=== PATIENT | female | born 1985 | race Caucasian/White ===

== ENCOUNTER 2016-10-08 16:31 | Inpatient (IN) | payer BC ==
[~2016-10-08] VITALS: Ht 167.6 cm; Wt 73.0 kg
[2016-10-08 16:48] VITALS: BP 112/64
[2016-10-08] MEDS ORDERED: OXYTOCIN INJ 20 UNIT in NS 1000ml 1,000 ML IV PRN (17:26)
[2016-10-08] MEDS ORDERED: CALCIUM CARBONATE CHEWABLE 300 MG (TUMS) TABLET PO PRN (17:30)
[2016-10-08] MEDS ORDERED: SODIUM CHLORIDE FLUSH 10 ML SYR IV PRN (17:30)
[2016-10-08 17:54] LABS: MEAN PLATELET VOLUME 12.5 FL (6.0-9.5); WHITE BLOOD COUNT 11.08 10^3uL (4.0-11.0)
[2016-10-08 18:01] LABS: MEAN CORPUSCULAR HEMOGLOBIN 34.9 PG (26.0-34.0)
[2016-10-08 19:00] VITALS: BP 101/65
[2016-10-08 20:00] VITALS: BP 93/56
[2016-10-08 21:00] VITALS: BP 94/53
[2016-10-08 22:00] VITALS: BP 101/57
[2016-10-08 23:00] VITALS: BP 98/56
[2016-10-09] VITALS (41 sets, daily range): BP systolic 82–104; BP diastolic 50–61
[2016-10-09] MEDS ORDERED: ROPIVACAINE 1% 10 MG/ML (NAROPIN) 20 ML AMPUL ONE ×2 (04:19→14:48)
[2016-10-09] MEDS ORDERED: OXYTOCIN INJ 20 UNIT in NS 1000ml 1,000 ML SCH (05:40)
[2016-10-09 05:53] LABS: BILIRUBIN,URINE Negative (Negative); CLARITY,URINE Clear; COLOR,URINE Yellow; GLUCOSE, URINE (UA) Negative (Negative); LEUKOCYTE ESTERASE ,URINE 1+ (Negative); UROBILINOGEN,URINE 0.2 mg/dL (0.2-1.0)
[2016-10-09 05:59] LABS: URINE CENTRIFUGED VOLUME 12 mL
[2016-10-09 06:00] LABS: RBC,URINE 20-50 /HPF
[2016-10-09] MEDS ORDERED: LANOLIN OINTMENT 28 GM TUBE TOP PRN (12:40)
[2016-10-09] MEDS ORDERED: SODIUM CHLORIDE VIAL (PF) 10 ML IV ONE (14:48)
[2016-10-09] MEDS ORDERED: BUPIVACAINE/EPINEPHRINE 0.5%-1:200,000 (MARCAINE) 30 ML VIAL INJ ONE (14:50)
[2016-10-09] MEDS ORDERED: MIDAZOLAM 2 MG/2 ML (VERSED) VIAL ONE (15:04)
[2016-10-09] MEDS: DEXTROMETHORPHAN PO PRN (16:51)
[2016-10-09] MEDS: GUAIFENESIN PO PRN (16:51)
[2016-10-09] MEDS: IBUPROFEN 600 MG (MOTRIN) TAB PO PRN (19:24)
[2016-10-09] MEDS: HYDROcodone/APAP 5 MG/325 MG (NORCO) TAB PO PRN (20:21)
[2016-10-09] MEDS ORDERED: DOCUSATE SODIUM 100 MG (COLACE) CAP PO SCH (21:00)
[2016-10-09] MEDS ORDERED: SERTRALINE 50 MG (ZOLOFT) TABLET PO SCH (21:00)
[2016-10-10] MEDS: IBUPROFEN 600 MG (MOTRIN) TAB PO PRN ×2 (01:26→07:09)
[2016-10-10] MEDS: GUAIFENESIN PO PRN (07:43)
[2016-10-10] MEDS: DEXTROMETHORPHAN PO PRN (07:43)
[2016-10-10 07:57] VITALS: BP 112/78
[2016-10-10] MEDS: HYDROcodone/APAP 5 MG/325 MG (NORCO) TAB PO PRN (12:39)
--- NOTE | 2016-10-10 13:20 | NUR ---
Printed instructions given after verbal review of all dismissal teaching. Dismissed to home.
== END 2016-10-10 13:20 | disposition home or self-care (01) | DRG 767 ==
LOC: EUOP 16:31 → OB 16:31 → EUOP 17:30 → OB 10-09 12:22
PROVIDERS: ADMIT Family Medicine; ATTEND Family Medicine
PROC: 10E0XZZ Delivery of Products of Conception, External Approach (ICD-10-PCS; principal; 2016-10-09)
PROC: 0UB70ZZ Excision of Bilateral Fallopian Tubes, Open Approach (ICD-10-PCS; 2016-10-09)
DX: O99.334 Smoking (tobacco) complicating childbirth (principal); F17.210 Nicotine dependence, cigarettes, uncomplicated; O99.344 Other mental disorders complicating childbirth; F32.9 Major depressive disorder, single episode, unspecified; Z3A.37 37 weeks gestation of pregnancy; Z37.0 Single live birth; Z30.2 Encounter for sterilization
CPT/HCPCS: 36415; 81003; 81015; 84112; 85014; 85018; 85027; 86850; 86900; 86901; 87088; 99202

== ENCOUNTER → 2016-12-31 | Outpatient (CLI) | payer BC ==
[~2016-12-31] MED LIST: AMOX500C5 PO; DOCU100C8 PO; GUAI-367 PO; HYDR-33 PO; IBUP-1772 PO; PNV91TAB3 PO; SERT50TA PO
[2016-12-31 18:55] VITALS: BP 106/71
--- NOTE | 2016-12-31 18:55 | Urgent Care T Sheet Gen (E) ---
Intake General Temperature (Fahrenheit): 97.7 Pulse: 65 Blood Pressure Systolic: 106 Blood Pressure Diastolic: 71 Respirations: 19 SPO2: 98 Chief Complaint: left ear ache Source: Patient Exam Limitations: No limitations History of Present Illness Initial Comments Pt reports she started having cold symptoms today, with some sore throat, sinus congestion and runny nose, and chills, and then the ear pain hit her pretty suddenly after work. She denies fever or cough. She used to have a lot of ear infections as a child, but has not had any in several years. 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 She initially followed up as recommended, but hasn't had her ear checked in at least a year now. Onset & Duration: Hours (2) Timing: Still present Severity: Severe Similar Sympotms Previously: Yes (with ear infections) Allergies: Coded Allergies: No Known Drug Allergies (Unverified , 10/08/16) Home Meds Active Scripts Docusate Sodium 100 Mg [id number] Mg PO HS PRN CONSTIPATION #10 CAP Prov:ZOIE REYES MD 10/10/16 Guaifenesin/Dextromethorphan (Mucinex DM ER 30 mg/600 mg)1 Each Tab.er.12h1 Each PO Q12HR PRN COUGH #10 TAB Prov:ZOIE REYES MD 10/10/16 Hydrocodone/Acetaminophen (ED- Vergas 5/325mg #6)6 Tabs/Btl Tablet1-2 Tab PO Q4H PRN Pain/Cramping #10 TAB Prov:ZOIE REYES MD 10/10/16 Ibuprofen 600 Mg [id number] Mg PO Q6H PRN PAIN #20 TAB Prov:ZOIE REYES MD 10/10/16 Reported Medications Sertraline HCl 50 Mg [id number] Mg PO DAILY 10/08/16 Pnv95/Ferrous Fumarate/FA ( Caplet)1 Each Tablet1 Each PO DAILY 10/08/16 Respiratory Constitutional Symptoms: See HPI ChillsNo Fever, No Malaise EENTM: See HPINo Eye tearing, Ear pain (L only)No Ear discharge, No Nose Pain , Nose CongestionNo Throat pain (some scratchiness), No Throat swelling Respiratory: See HPINo Cough, No Short of breath, No Wheezing Cardiovascular: No symptoms reported Gastrointestinal/Abdominal: No symptoms reported Genitourinary: No symptoms reported : No Estimated Date of Delivery: 10-25-16 Control/STD Prophylaxis: currently Musculoskeletal: No symptoms reported Skin: No symptoms reported Neurological: No symptoms reported All Other Systems Reviewed Remaining Systems: All other systems reviewed with negative findings Past Vcpyylp-Tnxobf-Gmpokz Hx Patient's Social History Alcohol Use: Denies Use Smoking Status: Current every day smoker Recent foreign travel: No Reproductive System : 3 Living Children: 3 HIV/AIDS: Negative HEENT HEENT History: Chronic ear infections, Other (Cholesteatoma, removed about 3 years ago) Physical Exam Physical Exam General Appearance: WD/WN No apparent distress Eyes, Ears, Nose, Throat Ex: PERRL/EOMI Pharyngeal erythema (mild, with clear drainage present)No Tonsillar exudate, Other (mild erythema and swelling of nasal turbinates with clear fluid present; R TM bulging with clear fluid present , L TM obscured by cerumen-like material which resists removal with curette causing pain to pt; material is moist in appearance, white to brown in color, and formed into lumps and whorls centered in front of the TM, which is erythematic and slightly bulging as viewed around central mass. ) Neck Exam: Non tender Full range of motion Supple Normal inspection Normal thyroid Respiratory Exam: Chest non-tender Lungs clear Normal breath sounds No respiratory distress Cardiovascular Exam: Regular rate, rhythm No murmur Skin Exam: Normal color Warm/dry/intact No rashes Neurologic/Psychiatric Exam: Oriented times 4 Mood/affect nml Departure Urgent Care Impression Chief Complaint: left ear ache Impression: Primary Impression: Left acute otitis media Departure Disposition: 01 HOME OR SELF-CARE Condition: Stable Referrals: ZOIE REYES MD (PCP) Additional Instructions: Discussed with pt that I think she is starting an ear infection on the L, so we will go ahead and treat this with antibiotics. Although the medication will be passed through the breastmilk, it should be in small enough quantities to be safe for her baby. Regarding the mass in her ear, it does not look typical for cholesteatoma by the photographs I have seen, because of the darker color and moist appearance, but I can't completely rule this out. I recommend following up with her specialist as before, and in the meantime, she can use something like Debrox to try to soften this and remove it. If she is able to get the ear to drain out wax, that would be reassuring, but I still recommend follow up. If not improving, or if worsening pain, fever, swelling, redness, discharge, or other concerning symptoms, she should follow up for recheck. Pt states understanding and agrees to plan. All questions answered. Scripts Amoxicillin (Amoxil)500 Mg [id number] Mg PO BID Infection #20 CAP Ref 0 Prov:DONNA AGRAWAL 12/31/16 End of report . DONNA AGRAWAL Dec 31, 2016 18:55
== END ==
LOC: MHUC 18:13
PROVIDERS: ATTEND Physician Assistant Medical
DX: H66.92 Otitis media, unspecified, left ear (principal)
CPT/HCPCS: 99213